=== PATIENT | female | born 1985 | race African-American/Black ===

== ENCOUNTER 2017-12-19 18:12 | Emergency (ER) | payer OTHER ==
[2017-12-19 19:54] LABS: Bilirubin Negative (Negative); Blood, Urine Negative (Negative); Clarity TURBID (Clear); Glucose, Urine (Dipstick) Negative (Negative); Leukocyte Negative (Negative); Nitrite Negative (Negative); Protein, Urine (Dipstick) Negative (Neg-Trace); Specific Gravity, Urine 1.029 (1.002-1.036); pH, Urine 7.5 (5.0-9.0)
[2017-12-19 19:55] LABS: Pregnancy Test - Urine (BHCG) POSITIVE (Negative); Pregu Control Background? CLEAR/WHITE (CLR/WHITE); Pregu Control Bar Appear? YES (CONTROL BAR); Specific Gravity 1.029 (1.002-1.036)
[2017-12-19] MEDS ORDERED: Acetaminophen 500 MG TAB ONE (20:15)
== END 2017-12-19 20:25 | disposition home or self-care (01) ==
LOC: ERS 18:12
DX: O99.619 Diseases of the digestive system complicating pregnancy, unspecified trimester (principal); K02.9 Dental caries, unspecified; O99.340 Other mental disorders complicating pregnancy, unspecified trimester; F32.9 Major depressive disorder, single episode, unspecified; F41.9 Anxiety disorder, unspecified
CPT/HCPCS: 81003; 81025; 99283

== ENCOUNTER 2018-04-21 18:47 | Emergency (ER) | payer OTHER ==
[2018-04-21 20:13] LABS: #Eosinphils 0.1 thou/uL (0.0-0.7); #Lymphocytes 2.8 thou/uL (1.20-3.40); #Monocytes 0.8 thou/uL (0.11-0.59); %Basophils 0.2 % (0.0-1.0); %Eosinophils 0.6 % (0.0-10.0); %Lymphocytes 18.7 % (21.0-51.0); %Monocytes 5.5 % (0.0-10.0); %Neutrophils 74.9 % (42.0-75.0); Hemoglobin 11.7 g/dL (12.0-16.0); Mean Corpuscular HGB CONC 34.6 g/dL (32.0-36.0); Mean Corpuscular Volume 80.9 fl (81.0-99.0); Mean Platelet Volume 7.2 fL (7.4-10.4); Platelet Count 201 thou/uL (130-400); RBC Distribution Width 13.1 % (11.5-14.5); Red Blood Cell (RBC) Count 4.17 mill/uL (4.20-5.40); White Blood Cell (WBC) Count 14.7 thou/uL (4.8-10.8)
[2018-04-21 20:34] LABS: ALT (SGPT) Less than 7 U/L (8-55); AST (SGOT) 12 U/L (5-34); Albumin 3.6 g/dL (3.5-5.0); Alkaline Phosphatase 124 U/L (40-150); Anion Gap 14 mmol/L (10-20); BUN (Urea Nitrogen) 7 mg/dL (7.0-18.7); Bilirubin, Total 0.3 mg/dL (0.2-1.2); Calc. Creatinine Clearance 0 mL/min (70-130); Carbon Dioxide 20 mmol/L (22-29); Chloride 107 mmol/L (98-107); Estimated GFR-MDRD Greater than 90; Globulin 3.2 g/dL (2.4-3.5); Glucose 95 mg/dL (70-105); Potassium 3.5 mmol/L (3.5-5.1); Protein, Total 6.8 g/dL (6.0-8.3); Sodium 137 mmol/L (136-145)
[2018-04-21] MEDS ORDERED: Acetaminophen 325 MG TAB ONE (20:45)
--- NOTE | 2018-04-21 20:52 | RAD ---
LEFT KNEE FOUR VIEWS: HISTORY: Injury to left knee. FINDINGS: No evidence of fracture. No joint effusion. IMPRESSION: No acute abnormality. POS: [facility]
== END 2018-04-21 21:08 | disposition left against medical advice (07) ==
LOC: ERS 18:47
DX: O9A.312 Physical abuse complicating pregnancy, second trimester (principal); S09.90XA Unspecified injury of head, initial encounter; O99.89 Other specified diseases and conditions complicating pregnancy, childbirth and the puerperium; M25.562 Pain in left knee; R10.32 Left lower quadrant pain; Z3A.22 22 weeks gestation of pregnancy
CPT/HCPCS: 36415; 80053; 85025; 86850; 86900; 86901

== ENCOUNTER 2018-06-02 17:16 | Day surgery (SDC) | payer OTHER ==
--- NOTE | 2018-06-02 18:12 | RAD ---
RIGHT ANKLE 3 VIEWS: Date: 06/02/18 HISTORY: Fall. Pain. COMPARISON: None. FINDINGS: Ankle mortise is intact. Joint spaces appear to be preserved. No fracture. There is soft tissue swell ing, predominantly on the lateral aspect. IMPRESSION: Soft tissue swelling. No fracture. Correlate clinically. Additional imaging if clinically warranted. POS: [facility]
[2018-06-02 20:15] VITALS: BMI 40.7
--- NOTE | 2018-06-02 21:06 | PDOC.FPROB ---
FMR OB H&P: HPI - History of Present Illness Chief Complaint: Right leg pain History of Present Illness: Patient is a 32YO @ 32.3 weeks consistent w/ LMP who presented to the ED with a chief complaint of right leg pain that began this morning after she fell while getting out of bed. Per patient, around 0900 this AM while getting out of bed she slipped and hit her right side on the bedrail and heard her right ankle pop. Since the fall she has had constant right leg pain from her knee down into her ankle that is 10/10 in severity, not relieved with rest, & is exacerbated by movement. Patient denies trying any PO pain medicine, ice, or heat for relief. Patient denies any abdominal trauma or pain as well as any vaginal bleeding, fluid loss or discharge. Primary Care Physician: Dr. Ervin De La Fuente FMR OB H&P: Current - Care : 8 Para: 7 Gestational age: 32.3 Due date: 07/25/18 Dating Criteria: LMP Course/Complications: Complicated by grand multiparity & abnormal placenta on U/S. - OB Labs Blood type: O RH: negative Rubella: immune Gonorrhea: negative Chlamydia: negative A1c: 5.8 in 2017 - Additional Ultrasound Additional: Abnormal placenta FMR OB H&P: History - Past Medical History PMH: none - OB History OB History: h/o multiple deliveries, last delivered via C/S 2/2 breech presentation with oligo - Surgical History Sx History: C/S x 1 - Family History Family History: None. FMR OB H&P: Medications - Current Home Medications: Medication Instructions Recorded Confirmed Type No Known [No Known] 06/02/18 06/02/18 History Allergies/Adverse Reactions: Allergies Allergy/AdvReac Type Severity Reaction Status Date / Time orange (food color) Allergy Verified 05/23/17 00:04 orange juice [[place] Juice] Allergy Hives Verified 05/22/17 09:10 FMR OB H&P: ROS - Review of Systems General: reports: recent trauma (Fell on right side). denies: fever/chills Eyes: denies: vision changes Cardiovascular: denies: chest pain Respiratory: denies: shortness of breath Gastrointestinal: reports: abdominal pain. denies: nausea, vomiting Musculoskeletal: reports: pain, tenderness, swelling, decrease range of motion Neurologic: denies: headache FMR OB H&P: Vital Signs - Maternal Vital signs: BP: 105/32 HR: 98 RR: 20 O2 Sat 100% on RA Temp: 98.3F - Heart Tones Baseline: 130 Variability: moderate Acceleration: present Deceleration: absent FMR OB H&P: Physical Exam - Physical Exam General: awake, alert and oriented, other (Mild distress 2/2 pain) HEENT: normocephalic and atraumatic, grossly normal vision, grossly normal hearing Heart: RRR, normal S1/S2 General: CTAB, no respiratory distress, no rales/rhonchi, no wheezing Abdomen: gravid, non-tender, bowel sound present Musculoskeletal: pulses present, no misalignment/asymmetry, other (Decreased ROM in RLE 2/2 pain. Normal sensation throughout.) Neurological: cranial nerves II through XII intact, no focal deficit Psychiatric: normal mood and affect FMR OB H&P: Results - Imaging Imaging: Right ankle x-ray: No sign of acute fracture. FMR OB H&P: A/P - Problem List (1) Leg pain Current Visit: Yes Status: Acute Qualifiers: Laterality: right Qualified Code(s): M79.604 - Pain in right leg Assessment and Plan: - x-ray of R ankle obtained in the ED. No signs of an acute fracture. Likely a sprain. - Will order an ankle brace and 1g PO tylenol. - Will instruct patient to continue tylenol PRN at home in addition to ice and elevation. (2) Current Visit: Yes Status: Acute Qualifiers: Weeks of gestation: 32 weeks Qualified Code(s): Z3A.32 - 32 weeks gestation of Comment: Compliacted by grand multiparity and multiple previous deliveries as well as placental abnormality on U/S Assessment and Plan: - No pressing concerns at this time. Will instruct patient to follow-up with PCP as scheduled. - h/o fall in 3rd trimester of . Per patient there was no abdominal trauma; however, will obtain a BPP and observe for at least 4 hours. - Current NST reassuring with moderate variability and an acceleration noted with no decelerations. Discussion: Date/Time: 06/02/182101 This H&P was discussed with [] and [] who agree with the above documentation and plan.
[2018-06-02] MEDS ORDERED: Acetaminophen 500 MG TAB PO SCH (21:15)
--- NOTE | 2018-06-02 22:15 | ULT ---
LIMITED ULTRASOUND ABDOMEN: HISTORY: Trauma. Fall from bed, landing on abdomen. COMPARISON: None. TECHNIQUE: Real-time Sanders-scale color Doppler and spectral analysis of the pelvis was performed. FINDINGS: There is a single viable intrauterine with average ultrasound age 32 weeks and 5 days and e stimated date of delivery of 07/23/2018. Estimated weight is 4 lbs 9 oz (55th percentile). BIOMETRY: Biparietal diameter 8.26 cm (33 weeks 2 days), 66th percentile. Head circumference 29.43 cm (32 weeks 3 days), 16th percentile. Abdominal circumference 28.69 cm (32 weeks 5 days), 58th percentile. Femur length 6.45 cm (33 weeks 2 days), 62nd percentile. Amniotic fluid index 16 cm. heart rate documented at 140 beats per minute. position is vertex. Placenta is anterior. At the chorioamniotic interface is a 6.4 cm hypoechoic focus with has some slow flow, likely a large venous wilson. No evidence of placental abruption. IMPRESSION: Single viable intrauterine without abnormality. POS: [facility]
--- NOTE | 2018-06-03 01:01 | ULT ---
NONSTRESS BIOPHYSICAL PROFILE: HISTORY: The patient fell. Placental lakes noted on OB ultrasound. COMPARISON: 06/02/2018 at 7:01 p.m. FINDINGS: Single intrauterine gestation with a vertex presentation. Cervical length is somewhat limited but ap pears to be approximately 4 cm. Anterior placenta is noted. heart tones with a rate of 140 beats per minute. Amniotic fluid index is 12.9 cm. NONSTRESS BIOPHYSICAL PROFILE: movement: 2 breathin tone: 2 Amniotic fluid index: 2 TOTAL SCORE: 8/8 IMPRESSION: 1. Nonstress biophysical profile with a total score of 8/8. 2. Limited evaluation of the cervix. POS: [facility]
== END 2018-06-02 23:00 | disposition home or self-care (01) ==
LOC: ERS 17:16 → L&D/OP 19:57
PROVIDERS: ATTEND Student in an Organized Health Care Education/Training Program
DX: O99.89 Other specified diseases and conditions complicating pregnancy, childbirth and the puerperium (principal); M25.561 Pain in right knee; M25.571 Pain in right ankle and joints of right foot; O09.43 Supervision of pregnancy with grand multiparity, third trimester; Z3A.32 32 weeks gestation of pregnancy; Z91.018 Allergy to other foods; Z91.02 Food additives allergy status; W01.190A Fall on same level from slipping, tripping and stumbling with subsequent striking against furniture, initial encounter
CPT/HCPCS: 76815; 76819; 99282

== ENCOUNTER 2019-03-31 18:00 | Emergency (ER) | payer OTHER | END 2019-03-31 18:15 | disposition home or self-care (01) | LOC: SCSER 18:00 | DX: L03.311 Cellulitis of abdominal wall (principal) | CPT/HCPCS: 99283 ==

== ENCOUNTER 2019-11-18 09:10 | Emergency (ER) | payer OTHER ==
[2019-11-18] MEDS ORDERED: Proparacaine 0.5% Opth 15 ML BOT ONE (09:32)
[2019-11-18] MEDS ORDERED: Fluorescein Opthalmic Strip ONE (09:32)
== END 2019-11-18 11:05 | disposition home or self-care (01) ==
LOC: ERS 09:10
DX: O9A.211 Injury, poisoning and certain other consequences of external causes complicating pregnancy, first trimester (principal); S05.01XA Injury of conjunctiva and corneal abrasion without foreign body, right eye, initial encounter; W50.0XXA Accidental hit or strike by another person, initial encounter
CPT/HCPCS: 99282

== ENCOUNTER 2020-02-08 14:04 | Emergency (ER) | payer OTHER ==
[~2020-02-08 14:04] MED LIST: Iopamidol-370 76% 500 ML 1 ML ONE
[2020-02-08] MEDS ORDERED: Ondansetron PF 4 MG/2 ML Vial ONE (14:54)
[2020-02-08 14:55] LABS: #Lymphocytes 1.4 thou/uL (1.20-3.40); #Monocytes 0.5 thou/uL (0.11-0.59); #Neutrophils 3.7 thou/uL (1.40-6.50); %Basophils 0.2 % (0.0-1.0); %Eosinophils 0.2 % (0.0-10.0); %Lymphocytes 24.3 % (21.0-51.0); %Neutrophils 66.3 % (42.0-75.0); Hemoglobin 11.6 g/dL (12.0-16.0); Mean Corpuscular HGB CONC 33.7 g/dL (32.0-36.0); Mean Corpuscular Hemoglobin 26.4 pg (27.0-31.0); Mean Corpuscular Volume 78.3 fL (78.0-98.0); Mean Platelet Volume 8.8 fL (7.4-10.4); Platelet Count 158 thou/uL (130-400); RBC Distribution Width 13.4 % (11.5-14.5); Red Blood Cell (RBC) Count 4.41 mill/uL (4.20-5.40); White Blood Cell (WBC) Count 5.6 thou/uL (4.8-10.8)
[2020-02-08 15:13] LABS: ALT (SGPT) 9 U/L (8-55); AST (SGOT) 15 U/L (5-34); Albumin 3.3 g/dL (3.5-5.0); Alkaline Phosphatase 158 U/L (40-110); Anion Gap 13 mmol/L (10-20); BUN (Urea Nitrogen) 5 mg/dL (7.0-18.7); Bilirubin, Total 0.6 mg/dL (0.2-1.2); Calc. Creatinine Clearance 0 mL/min (70-130); Calcium 8.3 mg/dL (7.8-10.44); Carbon Dioxide 20 mmol/L (22-29); Chloride 103 mmol/L (98-107); Estimated GFR-MDRD Greater than 90; Globulin 3.4 g/dL (2.4-3.5); Glucose 105 mg/dL (70-105); Potassium 3.5 mmol/L (3.5-5.1); Protein, Total 6.7 g/dL (6.0-8.3); Sodium 132 mmol/L (136-145)
[2020-02-08 15:15] LABS: Bilirubin 1+ (Negative); Blood, Urine Negative (Negative); Clarity Clear (Clear); Glucose, Urine (Dipstick) Normal (Negative); Leukocyte Negative Leu/uL (Negative); Nitrite Negative (Negative); Protein, Urine (Dipstick) 100 mg/dL (Neg-Trace); RBC/HPF 0-3 HPF (0-3); WBC/HPF 0-3 HPF (0-3)
[2020-02-08 15:17] LABS: Bacteria/HPF 1+ HPF (None Seen)
[2020-02-08] MEDS ORDERED: Lorazepam 2 MG/ML VIAL ONE (17:04)
--- NOTE | 2020-02-08 17:57 | CT ---
CTA CHEST WITH CONTRAST: History: Chest pain, abdominal pain. female. Technique: Multiple contiguous axial images were obtained in a CTA of the chest with contrast per pul monary embolism protocol. 3D oblique MIP reformats and direct coronal reformats were performed. The pulmonary arteries are well opacified without filling defects to suggest pulmonary emboli. The he art is normal in size without focal cardiac abnormality. No hilar or mediastinal lymphadenopathy are seen. Atelectasis is seen in the right middle lobe and bilateral lower lobes. No pneumothorax or pleural ef fusion are seen. No areas of consolidation are seen. The visualized subdiaphragmatic structures are unremarkable. The chest wall soft tissues are unremark able. The bones are unremarkable. IMPRESSION: 1. No evidence of pulmonary thromboembolism. 2. Bilateral pulmonary atelectasis. POS: [facility]
--- NOTE | 2020-02-16 15:34 | EKG ---
Test Reason : Blood Pressure : / mmHG Vent. Rate : 108 BPM Atrial Rate : 108 BPM P-R Int : 138 ms QRS Dur : 074 ms QT Int : 336 ms P-R-T Axes : 053 031 000 degrees QTc Int : 450 ms Sinus tachycardia Nonspecific T wave abnormality Abnormal ECG Confirmed by BIRGIT MORAN, JAREK Hyman ([id number]), editor trade journal WALDO WILSON ([id number]) on 02/16/2020 3:34:04 PM Referred By: Confirmed By:JAREK GENAO MD
== END 2020-02-08 18:54 | disposition home or self-care (01) ==
LOC: ERS 14:04
DX: O99.283 Endocrine, nutritional and metabolic diseases complicating pregnancy, third trimester (principal); E86.0 Dehydration; O99.89 Other specified diseases and conditions complicating pregnancy, childbirth and the puerperium; R07.9 Chest pain, unspecified; R10.9 Unspecified abdominal pain; O99.343 Other mental disorders complicating pregnancy, third trimester; F41.9 Anxiety disorder, unspecified; Z3A.30 30 weeks gestation of pregnancy
CPT/HCPCS: 71275; 80053; 81003; 81015; 84484; 85025; 87086; 93005; J2060; J2405

== ENCOUNTER 2020-02-08 18:20 | Day surgery (SDC) | payer OTHER ==
[2020-02-08] MEDS ORDERED: hydrALAZINE 20 MG/ML VIAL SLOW IVP PRN (18:44)
[2020-02-08 19:19] VITALS: BMI 42.0
--- NOTE | 2020-02-08 20:13 | PDOC.FPROB ---
FMR OB H&P: HPI - History of Present Illness Chief Complaint: Chest Pain, Abd Pain Indentification: 34 y/o @ 30.1 WGA by 22.5wk US History of Present Illness: Patient presents for chest pain and abd pain. She reports the chest pain had gone on for the past 4 days in the center of her chest, but it is gone now. She was evaluated in the ED for this problem and found to have negative troponin and negative CTA chest. She was given 2L NS, ativan, and zofran in the ED. She denies any SOB, cough, fever, sore throat. She reports the abdominal pain is a cramping pain like contractions in her lower abdomen that has been coming and going every couple of minutes for the past week, but got more severe today which is what brought her in. She denies vaginal bleeding, d/c, LOF, dysuria, back pain. Reports movement. Primary Care Physician: Dr. Simms - [facility] FMR OB H&P: Current - Care : 10 Para: [id number] Gestational age: 30.1 Due date: 04/17/20 Dating Criteria: 22.5 wk US - OB Labs Blood type: O RH: negative Antibody Screen: positive (anti D, titer 0) HIV: negative HepBsAg: negative Rubella: immune Gonorrhea: negative Chlamydia: negative Pap Smear: NILM A1c: 5.8 H&H: 11.3/34 - First Trimester Ultrasound First trimester: abnormal cord insertion - Anatomy Survey Anatomy survey: not completed FMR OB H&P: History - Past Medical History PMH: Denies - OB History OB History: 1 molar 1 @ 34 weeks 5 term 1 term c/s for breech presentation 1 term c/s for short interpregnancy interval - Surgical History Sx History: 2 prior sections - Social History Social History: Denies tobacco, EtOH, drug use - Family History Family History: Denies FMR OB H&P: Medications - Current Home Medications: Medication Instructions Recorded Confirmed Type No Known 02/08/20 02/08/20 History Allergies/Adverse Reactions: Allergies Allergy/AdvReac Type Severity Reaction Status Date / Time orange (food color) Allergy Verified 01/31/20 05:02 orange juice [[place] Juice] Allergy Hives Verified 01/31/20 05:02 FMR OB H&P: ROS - Review of Systems General: denies: fever/chills, weight/appetite/sleep changes Eyes: denies: eye pain, vision changes, double vision ENT: denies: nasal congestion, rhinorrhea, sore throat Cardiovascular: reports: chest pain. denies: palpitation, edema Respiratory: denies: cough, shortness of breath Gastrointestinal: reports: abdominal pain, cramping. denies: nausea, vomiting, diarrhea Genitourinary (Female): denies: dysuria, hematuria, vaginal discharge, vaginal bleeding Musculoskeletal: denies: pain, swelling Neurologic: denies: numbness, weakness Integumentary: denies: itching, rash Psychological: denies: depression, anxiety FMR OB H&P: Vital Signs - Maternal Vital signs: BP 108/52, HR 100, RR 14, O2 100% on RA, Temp 98.9 - Heart Tones Baseline: 150 Variability: moderate Acceleration: absent Deceleration: absent Category: category 1 Hebo contractions every: none FMR OB H&P: Physical Exam - Physical Exam General: NAD, awake, alert and oriented HEENT: normocephalic and atraumatic, MMM, conjunctiva clear, no scleral icterus , grossly normal vision, grossly normal hearing Neck: supple, no LAD Heart: RRR, normal S1/S2, no murmurs/rubs/gallops, pulses present, no edema General: CTAB, no respiratory distress, good air movement, no rales/rhonchi, no wheezing Abdomen: soft, gravid, other (TTP in lower abdomen) Musculoskeletal: normal gait and station, pulses present, FROM in all four extremities Neurological: no clonus, no focal deficit Skin: good tugor, capillary refill <2 seconds Lymphatic: no unusual bruising or bleeding, no purpura Psychiatric: intact recent and remote memory, good judgement and insight - Pelvic Exam SVE: /-3 FMR OB H&P: Results - Labs Lab results: Laboratory Tests 02/08/20 02/08/20 02/08/20 14:20 14:20 14:20 WBC 5.6 Hgb 11.6 L Hct 34.5 L Plt Count 158 Sodium 132 L Potassium 3.5 Chloride 103 Carbon Dioxide 20 L Anion Gap 13 BUN 5 L Creatinine 0.68 Estimated GFR (MDRD) Greater than 90 Glucose 105 Calcium 8.3 Total Bilirubin 0.6 AST 15 ALT 9 Alkaline Phosphatase 158 H Troponin I Less than 0.010 Urine Color Urine Clarity Urine pH Ur Specific [place] Urine Protein Urine Glucose (UA) Urine Ketones Urine Blood Urine Nitrite Urine Bilirubin Urine Urobilinogen Ur Leukocyte Esterase Urine RBC Urine WBC Ur Squamous Epith Cells Urine Bacteria 02/08/20 14:52 WBC Hgb Hct Plt Count Sodium Potassium Chloride Carbon Dioxide Anion Gap BUN Creatinine Estimated GFR (MDRD) Glucose Calcium Total Bilirubin AST ALT Alkaline Phosphatase Troponin I Urine Color Dark-Yellow Urine Clarity Clear Urine pH 6.0 Ur Specific [place] 1.034 Urine Protein 100 A Urine Glucose (UA) Normal Urine Ketones Greater than 150 A Urine Blood Negative Urine Nitrite Negative Urine Bilirubin 1+ A Urine Urobilinogen 8.0 A Ur Leukocyte Esterase Negative Urine RBC 0-3 Urine WBC 0-3 Ur Squamous Epith Cells 11-20 A Urine Bacteria 1+ A - Imaging Imaging: CTA showed atelectasis, negative for PE FMR OB H&P: A/P - Problem List (1) Abdominal pain during Current Visit: Yes Status: Acute Code(s): O26.899 - OTH RELATED CONDITIONS, UNSPECIFIED TRIMESTER; R10.9 - UNSPECIFIED ABDOMINAL PAIN Qualifiers: Trimester: third trimester Qualified Code(s): O26.893 - Other specified related conditions, third trimester; R10.9 - Unspecified abdominal pain Assessment and Plan: Pt with cramping abdominal pain. UA not concerning for UTI Pt not karina on toco Likely abdominal cramping from dehydration No signs of labor (2) Current Visit: No Status: Acute Qualifiers: Weeks of gestation: 30 weeks Qualified Code(s): Z3A.30 - 30 weeks gestation of Assessment and Plan: Complicated by grand multiparity, poor f/u Pt has not received her anatomy US yet -Will check anatomy at this time as pt appeared to have abnormal placental cord insertion on dating US Chest pain has resolved with ACS and PE ruled out (3) Rh negative status during Current Visit: Yes Status: Acute Code(s): O26.899 - OTH RELATED CONDITIONS, UNSPECIFIED TRIMESTER; Z67.91 - UNSPECIFIED BLOOD TYPE, RH NEGATIVE Qualifiers: Trimester: third trimester Qualified Code(s): O26.893 - Other specified related conditions, third trimester; Z67.91 - Unspecified blood type, Rh negative Assessment and Plan: Pt has not received rhogam yet due to poor f/u. She had antibody positive for anti D with titer 0 -Will check KB and then give Rhogam (4) H/O section Current Visit: Yes Status: Acute Code(s): Z98.891 - HISTORY OF UTERINE SCAR FROM PREVIOUS SURGERY Assessment and Plan: Pt with 2 prior cesareans, plan for repeat at time of delivery Disposition: d/c pt home after anatomy US and rhogam Discussion: Date/Time: 02/08/202008 This H&P was discussed with Dr. Fleming who agrees with the above documentation and plan. Signature: Vijaya Grover MD, PGY-3 Addendum - Attending - Attending Attestation Date/Time: 02/08/20 2220 I personally evaluated the patient and discussed the management with Dr. Grover. I agree with the History, Examination, Assessment and Plan documented above with any addition or exceptions noted below.
[2020-02-08] MEDS ORDERED: Ondansetron PF 4 MG/2 ML Vial ONE (21:48)
[2020-02-08] MEDS ORDERED: Ondansetron ODT 8 MG TAB SL SCH (22:00)
--- NOTE | 2020-02-08 23:35 | ULT ---
ULTRASOUND OBSTETRICAL COMPLETE: DATE: 02/08/2020 HISTORY: 34-year-old female. Evaluate anatomy. FINDINGS: number: [place] lie: Cephalic Maternal cervix: Poorly visualized. Placenta: Anterior. No placenta previa. Amniotic fluid volume: NABIL = 9.5 cm heart rate: 152 bpm The following anatomy is visualized, with no evidence of anomalies: Head, cerebellum, lateral ventricles, four-chamber heart, stomach, kidneys, cord insertion, bladder, cervical spine, thoracic spine, lumbar spine, sacrum, nose and lips, upper extremities, lower extremities, and three-vessel cord. biometry: Biparietal diameter (BPD): 7.4 cm 29 w 4 d Head circumference (HC): 27.5 cm 30 w 0 d Abdominal circumference (AC): 25.2 cm 29 w 3 d Femur length (FL): 5.7 cm 30 w 0 d Average ultrasound age (AUA): 29 w 5 d Estimated date of delivery (GIOVANNI): 04/20/2020 Estimated weight (EFW): 1432 g +/- 212 g IMPRESSION: 1) Live 3rd trimester intrauterine gestation. 2) Estimated gestational age of 29 weeks, 5 days 3) cephalic lie. 4) no anatomic abnormality identified. 5) amniotic fluid volume at lower limits of normal
== END 2020-02-08 23:50 | disposition home or self-care (01) ==
LOC: L&D/OP 18:20
PROVIDERS: ATTEND Family Medicine
DX: O99.89 Other specified diseases and conditions complicating pregnancy, childbirth and the puerperium (principal); R07.9 Chest pain, unspecified; R10.30 Lower abdominal pain, unspecified; O09.A3 Supervision of pregnancy with history of molar pregnancy, third trimester; O09.213 Supervision of pregnancy with history of pre-term labor, third trimester; O34.219 Maternal care for unspecified type scar from previous cesarean delivery; Z3A.30 30 weeks gestation of pregnancy; Z91.018 Allergy to other foods
CPT/HCPCS: 36415; 71275; 76805; 80053; 81003; 81015; 84484; 85025; 85460; 87086; 90384; 93005; 96372; 99283; J2060; J2405

== ENCOUNTER 2021-10-22 11:55 | Emergency (ER) | payer OTHER ==
[2021-10-22] MEDS ORDERED: Ketorolac Tromethamine 30 MG/ML VIAL ONE (12:21)
== END 2021-10-22 12:42 | disposition home or self-care (01) ==
LOC: ERS 11:55
DX: S00.93XA Contusion of unspecified part of head, initial encounter (principal); S30.0XXA Contusion of lower back and pelvis, initial encounter; V49.9XXA Car occupant (driver) (passenger) injured in unspecified traffic accident, initial encounter
CPT/HCPCS: 96372; 99283; J1885

== ENCOUNTER 2023-02-03 15:53 | Emergency (ER) | payer OTHER ==
[2023-02-03 16:26] LABS: Bacteria/HPF 2+ HPF (None Seen); Bilirubin Negative (Negative); Blood, Urine 2+ (Negative); Clarity Turbid (Clear); Glucose, Urine (Dipstick) Normal (Negative); Ketone, Urine Negative (Negative); Leukocyte 500 Leu/uL (Negative); Nitrite Negative (Negative); Protein, Urine (Dipstick) 30 mg/dL (Neg-Trace); RBC/HPF 21-50 HPF (0-3); Specific Gravity, Urine 1.026 (1.002-1.036); Urobilinogen 6 mg/dL (Less than 2); WBC/HPF Greater than 50 HPF (0-3); pH, Urine 7.5 (5.0-9.0)
[2023-02-03 17:00] LABS: Pregnancy Test - Urine (BHCG) Negative (Negative); Pregu Control Background? CLEAR/WHITE (CLR/WHITE); Pregu Control Bar Appear? YES (CONTROL BAR); Specific Gravity 1.026 (1.002-1.036)
[2023-02-04 13:40] LABS: Chlam.trachomatis by PCR,Urine Not Detected (NotDetected); GC N.gonorrhoeae PCR,UrineVOID Not Detected (NotDetected)
== END 2023-02-03 16:43 | disposition home or self-care (01) ==
LOC: ERS 15:53
DX: B37.31 Acute candidiasis of vulva and vagina (principal); N39.0 Urinary tract infection, site not specified
CPT/HCPCS: 81003; 81015; 81025; 87086; 87480; 87491; 87510; 87591; 87660; 99283

== ENCOUNTER 2023-03-22 11:01 | Emergency (ER) | payer OTHER ==
[2023-03-22] MEDS ORDERED: Ketorolac Tromethamine 30 MG/ML VIAL ONE (12:09)
== END 2023-03-22 13:14 | disposition home or self-care (01) ==
LOC: ERS 11:01
DX: S30.0XXA Contusion of lower back and pelvis, initial encounter (principal); W18.30XA Fall on same level, unspecified, initial encounter
CPT/HCPCS: 72220; 96372; J1885